=== PATIENT | female | born 2005 | race Caucasian/White ===

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

== ENCOUNTER 2024-02-11 16:21 | Emergency (ER) | payer OTHER ==
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
[2024-02-11 16:39] VITALS: TEMP 97.9
[2024-02-11] MEDS ORDERED: BACTRIM DS TABLET PO ONE (17:04)
[2024-02-11] MEDS: BACTRIM DS TABLET PO STA (17:04)
[2024-02-11] MEDS ORDERED: DELTASONE 20 MG ONE (17:04)
[2024-02-11] MEDS: DELTASONE 20 MG PO ONE (17:04)
[2024-02-11 17:26] VITALS: BP 128/81; PULSE 68; RESP 16; O2SAT 97
== END 2024-02-11 17:33 | disposition home or self-care (01) ==
LOC: ED 16:21
DX: L03.115 Cellulitis of right lower limb (principal); Z79.52 Long term (current) use of systemic steroids; Z79.899 Other long term (current) drug therapy
CPT/HCPCS: 99282; A9270-GY

== ENCOUNTER 2025-05-21 05:47 | Emergency (ER) | payer SELFPAY ==
[2025-05-21 05:59] VITALS: TEMP 98.8; O2SAT 98
--- NOTE | 2025-05-21 06:21 | ERPHSYRPT ---
- History of Present Illness Time Seen by Provider: 05/21/25 06:00 Patient Subjective Stated Complaint: . Triage Nursing Assessment: . Physician History: 20-year-old female that prior to arrival had her dog jumped on her and accidentally pulled her earring backing into the soft tissues of her ear. Some bleeding on ER arrival. Tetanus is up-to-date. No other symptoms. Allergies/Adverse Reactions: Latex, Natural Rubber Allergy (Verified 05/21/25 05:54) Hx Tetanus, Diphtheria Vaccination/Date Given: Yes Hx Influenza Vaccination/Date Given: Yes Hx Pneumococcal Vaccination/Date Given: No Immunizations Up to Date: Yes Travel Risk - International Travel Have you traveled outside of the country in past 3 weeks: No - Emerging Infectious Disease Are you exhibiting symptoms associated with any current EIDs: No - Review of Systems Constitutional: No Fever, No Chills Eyes: No Symptoms Ears, Nose, & Throat: No Symptoms Respiratory: No Cough, No Dyspnea Cardiac: No Chest Pain, No Edema, No Syncope Abdominal/Gastrointestinal: No Abdominal Pain, No Nausea, No Vomiting, No Diarrhea Genitourinary Symptoms: No Dysuria Musculoskeletal: No Back Pain, No Neck Pain Skin: Other (Ear injury only right ear with earring pulled into ear), No Rash Neurological: No Dizziness, No Focal Weakness, No Sensory Changes Psychological: No Symptoms Endocrine: No Symptoms All Other Systems: Reviewed and Negative - Past Medical History Pertinent Past Medical History: No - Past Surgical History Past Surgical History: No - Female History Hx Last Menstrual Period: n/a - iud Hx Now: No - Social History Smoking Status: Current every day smoker Exposure to second hand smoke: No Drug Use: none - Social Determinants of Health Will the patient participate in the screening: Yes Do you worry about a steady place to live?: No Do you have any problems with any of the following?: No known problems In the past 12 months,have you had to go without utilities?: No Transportation Issues: No Has anyone in your support network made you feel unsafe?: No Have you or anyone in your house had to go w/o enough food: No - Nursing Vital Signs Nursing Vital Signs: Initial Vital Signs Temperature 98.8 F 05/21/25 05:55 Pulse Rate 86 05/21/25 05:55 Respiratory Rate 20 05/21/25 05:55 Blood Pressure 138/94 05/21/25 05:55 O2 Sat by Pulse Oximetry 98 05/21/25 05:55 Pain Scale Pain Intensity 7 - Physical Exam General Appearance: no apparent distress Ears, Nose, Throat Exam: other (Patient's earring back is pulled and dislodged and angulated direction in the right earlobe. There is small amount of bleeding around the entry site is not active. There is no redness warmth or bruising.) SpO2: 98 Ordered Tests: Medication Summary Generic Name Dose Route Start Last Admin Trade Name Alex PRN Reason Stop Dose Admin Oxycodone HCl 5 mg 05/21/25 06:16 Oxycodone Hcl 5 Mg Ir Tab PO 05/21/25 06:17 ONCE ONE - Progress Progress Note: 05/21/25 06:18 Cleaned with Betadine. The earring front was taken off. The earring was backed posteriorly through the earring hole. There was a small amount of local bleeding which was stopped upon cleaning and pressure. Plan to give oral pain medication here and place patient on antibiotic Keflex for 5 days. - Departure Departure Disposition: Home Clinical Impression: Foreign body in right ear Condition: Good Critical Care Time: No Additional Instructions: Given oral pain medication in the ER. Do not drive this morning. To be placed on antibiotic. Keep the earring out of keep the area clean and dry. Return for worsening symptoms such as fever redness or concerns Prescriptions: cephALEXin [Cephalexin] 500 mg PO QID 5 Days #20 tablet
[2025-05-21] MEDS ORDERED: PERCOCET TABLET 5/325MG ONE (06:22)
[2025-05-21] MEDS ORDERED: BACIGUENT PACKET ONE (06:28)
[2025-05-21] MEDS: PERCOCET TABLET 5/325MG PO STA (06:28)
[2025-05-21] MEDS: BACIGUENT PACKET TP ONE (06:29)
[2025-05-21] MEDS: Oxy-IR 5 MG PO ONE (06:34)
[2025-05-21 06:36] VITALS: BP 127/89; PULSE 72; RESP 18
== END 2025-05-21 06:40 | disposition home or self-care (01) ==
LOC: ED 05:47
DX: S00.451A Superficial foreign body of right ear, initial encounter (principal); W54.1XXA Struck by dog, initial encounter; Z79.899 Other long term (current) drug therapy; Z72.0 Tobacco use